=== PATIENT | male | born 1940 | race Caucasian/White ===

== ENCOUNTER 2016-10-03 11:03 | Outpatient (CLI) | payer BC ==
[2016-10-03 11:57] LABS: Blood Urea Nitrogen 25 mg/dL (9-20)
[2016-10-03] MEDS ORDERED: NACL ONE (13:11)
--- NOTE | 2016-10-03 14:37 | Cat Scan Report ---
CT of the chest without contrast. History: Weight loss and cough. Findings: The lungs are clear. There are no pulmonary masses or nodules. No pleural fluid is seen. Evaluation of the mediastinum and hilar regions is suboptimal due to the absence of intravenous contrast. A few small nodes are seen in the pretracheal region and AP window. No definite enlarged lymph nodes are seen. There is no pleural fluid. Impression: No significant findings.
--- NOTE | 2016-10-03 14:43 | Cat Scan Report ---
CT of the abdomen and pelvis with and without IV contrast and with oral contrast. History: Weight loss, bowel obstruction. Findings: The liver and spleen are normal in size and configuration with no focal abnormalities. The pancreas and gallbladder are unremarkable. The kidneys are normal in size and configuration with no evidence of mass or hydronephrosis. The adrenal glands are unremarkable. There are no pelvic masses or abnormal fluid collections. No mesenteric inflammatory changes are seen. There is no free air. There is no evidence of bowel dilatation. The prostate is mildly enlarged. There is no evidence of appendicitis. Impression: No significant findings.
== END 2016-10-03 11:04 | disposition home or self-care (01) ==
LOC: CT 11:03
PROVIDERS: ATTEND Family Medicine
DX: K51.011 Ulcerative (chronic) pancolitis with rectal bleeding (principal); K56.60 Unspecified intestinal obstruction; N40.0 Benign prostatic hyperplasia without lower urinary tract symptoms; R91.8 Other nonspecific abnormal finding of lung field; R63.4 Abnormal weight loss; Z72.0 Tobacco use
CPT/HCPCS: 36415; 71250; 74178; 82565; 84520; Q9967